=== PATIENT | female | born 1980 ===

== ENCOUNTER 2021-03-04 15:39 | Outpatient (CLI) | payer OTHER | END 2021-03-04 16:57 | disposition home or self-care (01) | LOC: PRENATAL 15:39 | PROVIDERS: ATTEND Obstetrics & Gynecology Maternal & Fetal Medicine | DX: Z36.89 Encounter for other specified antenatal screening (principal); O36.80X1 Pregnancy with inconclusive fetal viability, fetus 1; O09.512 Supervision of elderly primigravida, second trimester; Z3A.12 12 weeks gestation of pregnancy ==

== ENCOUNTER 2021-04-29 12:49 | Outpatient (CLI) | payer OTHER | END 2021-04-29 14:20 | disposition home or self-care (01) | LOC: PRENATAL 12:49 | PROVIDERS: ATTEND Obstetrics & Gynecology Maternal & Fetal Medicine | DX: O35.0XX0 Maternal care for (suspected) central nervous system malformation in fetus, not applicable or unspecified (principal); O35.3XX0 Maternal care for (suspected) damage to fetus from viral disease in mother, not applicable or unspecified ==

== ENCOUNTER 2021-09-06 21:14 | Inpatient (IN) | payer OTHER ==
[~2021-09-06] VITALS: Ht 165.1 cm; Wt 2.7 kg
[2021-09-06] MEDS ORDERED: AMPICILLIN SOD500 MG IM (21:48)
[2021-09-06] MEDS ORDERED: PRENATAL TABLE1 EAC1 PO (21:48)
== END 2021-09-10 15:02 | disposition home or self-care (01) | DRG 788 ==
LOC: LDR 21:14 → OB/GYN 21:14
PROVIDERS: Obstetrics & Gynecology; ADMIT Obstetrics & Gynecology; ATTEND Obstetrics & Gynecology
PROC: 4A1HXCZ Monitoring of Products of Conception, Cardiac Rate, External Approach (ICD-10-PCS; 2021-09-06)
PROC: 10D00Z1 Extraction of Products of Conception, Low, Open Approach (ICD-10-PCS; principal; 2021-09-07 07:00)
DX: O62.1 Secondary uterine inertia (principal); Z3A.39 39 weeks gestation of pregnancy; Z37.0 Single live birth; Z20.822 Contact with and (suspected) exposure to COVID-19